=== PATIENT | female | born 1985 ===

== ENCOUNTER 2019-10-28 14:18 | Inpatient (IN) | payer OTHER ==
[~2019-10-28] VITALS: Ht 167.6 cm; Wt 79.4 kg
== END 2019-11-22 11:11 | disposition home or self-care (01) | DRG 807 ==
LOC: OB/GYN → LDR 11-20 07:51 → OB/GYN 11-20 18:28
PROVIDERS: ADMIT Obstetrics & Gynecology Maternal & Fetal Medicine
PROC: 10E0XZZ Delivery of Products of Conception, External Approach (ICD-10-PCS; principal; 2019-11-20)
PROC: 0HQ9XZZ Repair Perineum Skin, External Approach (ICD-10-PCS; 2019-11-20)
PROC: 3E033VJ Introduction of Other Hormone into Peripheral Vein, Percutaneous Approach (ICD-10-PCS; 2019-11-20)
PROC: 10907ZC Drainage of Amniotic Fluid, Therapeutic from Products of Conception, Via Natural or Artificial Opening (ICD-10-PCS; 2019-11-20)
PROC: 4A1HXCZ Monitoring of Products of Conception, Cardiac Rate, External Approach (ICD-10-PCS; 2019-11-20)
DX: O70.0 First degree perineal laceration during delivery (principal); Z37.0 Single live birth; Z3A.39 39 weeks gestation of pregnancy

== ENCOUNTER 2019-11-12 09:02 | Outpatient (CLI) | payer OTHER | END 2019-11-12 09:48 | disposition home or self-care (01) | LOC: NST 09:02 | DX: Z34.83 Encounter for supervision of other normal pregnancy, third trimester (principal) ==

== ENCOUNTER 2019-11-19 11:42 | Outpatient (CLI) | payer OTHER | END 2019-11-19 12:51 | disposition home or self-care (01) | LOC: NST 11:42 | DX: Z34.83 Encounter for supervision of other normal pregnancy, third trimester (principal) ==